=== PATIENT | male | born 1990 | race Two or more races ===

== ENCOUNTER 2019-02-02 08:49 | Emergency (ER) | payer OTHER ==
[~2019-02-02] VITALS: Ht 182.9 cm; Wt 74.8 kg
[2019-02-02] MEDS ORDERED: NKM (08:57)
[2019-02-02 09:00] VITALS: BP 115/59
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
[2019-02-02] MEDS ORDERED: Morphine Sulfate 2mg/ml Inj(IV/IM USE ONLY) IVP ONE (09:15)
--- NOTE | 2019-02-02 09:24 | NUR ---
ED Nurse Note: pt went down for CT in stable condition.
--- NOTE | 2019-02-02 09:28 | NUR ---
ED Nurse Note: pt came back from CT scan in stable condition.
[2019-02-02 09:40] LABS: BASOPHILS % (AUTO) 1.1 % (0.0-2.0); EOSINOPHILS % (AUTO) 1.4 % (0.0-3.0); HEMATOCRIT 42.2 % (42.0-52.0); HEMOGLOBIN 14.2 G/DL (14.2-18.0); LYMPHOCYTES % (AUTO) 29.3 % (20.0-45.0); MEAN CORPUSCULAR VOLUME 94 FL (80-99); MONOCYTES % (AUTO) 7.9 % (1.0-10.0); NEUTROPHILS % (AUTO) 60.3 % (45.0-75.0); PLATELET COUNT 275 K/UL (150-450); RED CELL DISTRIBUTION WIDTH 11.4 % (11.6-14.8); WHITE BLOOD COUNT 7.8 K/UL (4.8-10.8)
[2019-02-02 09:43] LABS: ANION GAP 5 mmol/L (5-15); BLOOD UREA NITROGEN 13 mg/dL (7-18); CARBON DIOXIDE 30 MMOL/L (21-32); CHLORIDE 106 MMOL/L (98-107); CREATININE 1.1 MG/DL (0.55-1.30); POTASSIUM 3.6 MMOL/L (3.5-5.1); SODIUM 141 MMOL/L (136-145)
[2019-02-02 09:48] LABS: ALANINE AMINOTRANSFERASE 144 U/L (12-78); ALKALINE PHOSPHATASE 76 U/L (46-116); ASPARTATE AMINO TRANSFERASE 66 U/L (15-37); BILIRUBIN,TOTAL 0.7 MG/DL (0.2-1.0)
--- NOTE | 2019-02-02 10:14 | Diagnostic Imaging Report ---
EXAM: CT Head Without Intravenous Contrast CLINICAL HISTORY: PAIN TECHNIQUE: Axial computed tomography images of the head/brain without intravenous contrast. CTDI is 70.38 mGy and DLP is 1379 mGy-cm. One or more of the following dose reduction techniques were used: automated exposure control, adjustment of the mA and/or kV according to patient size, use of iterative reconstruction technique. Coronal reformatted images were created and reviewed. COMPARISON: Maxillofacial CT dated 02/02/19 FINDINGS: Limitations: Exam mildly degraded by patient motion artifact. Brain: Unremarkable. No evidence of acute intracranial hemorrhage. No significant white matter disease. No edema. No mass effect or midline shift. Ventricles: Unremarkable. No ventriculomegaly. Bones/joints: Partial visualization of comminuted nasal bone fractures. Soft tissues: Unremarkable. Sinuses: Unremarkable as visualized. No acute sinusitis. Mastoid air cells: Unremarkable as visualized. No mastoid effusion. IMPRESSION: 1. Exam mildly degraded by patient motion artifact. 2. Partial visualization of comminuted nasal bone fractures. 3. No acute intracranial findings.
--- NOTE | 2019-02-02 10:16 | Diagnostic Imaging Report ---
EXAM: CT Maxillofacial Without Intravenous Contrast CLINICAL HISTORY: PAIN TECHNIQUE: Axial computed tomography images of the face without intravenous contrast. CTDI is 28.19 mGy and DLP is 620.21 mGy-cm. One or more of the following dose reduction techniques were used: automated exposure control, adjustment of the mA and/or kV according to patient size, use of iterative reconstruction technique. Coronal reformatted images were created and reviewed. COMPARISON: Noncontrast CT of the head obtained the same date FINDINGS: Bones/joints: Comminuted and mildly displaced nasal bone fractures and subtle fracture of the bony nasal septum. Soft tissues: Soft tissue swelling overlying the nose and left maxilla. Orbits: Unremarkable. Bony orbits appear intact. Bilateral globes and intraconal soft tissues appear unremarkable. Sinuses: Mild mucosal thickening in the ethmoid air cells and left maxillary sinus. No sinus air-fluid levels. IMPRESSION: 1. Comminuted and mildly displaced nasal bone fractures and subtle fracture of the bony nasal septum. 2. Mild mucosal thickening in the ethmoid air cells and left maxillary sinus. No sinus air-fluid levels. 3. Soft tissue swelling overlying the nose and left maxilla.
--- NOTE | 2019-02-02 10:19 | NUR ---
ED Nurse Note: ERMD at bedside speaking to pt about CT and blood results.
[2019-02-02] MEDS ORDERED: IBUPROFEN600 MG ORAL (10:28)
[2019-02-02] MEDS ORDERED: NORCO 5-325 TA1 EACH ORAL (10:28)
[2019-02-02] MEDS ORDERED: AMOXICILLIN500 MG ORAL (10:28)
[2019-02-02] MEDS ORDERED: HYDROcodone/Acetamin 5/325 tab ORAL ONE (10:30)
[2019-02-02] MEDS ORDERED: Bacitracin Opth Oint LEFT EYE ONE (10:30)
[2019-02-02] MEDS ORDERED: Tetanus/Diptheria/Pertussis IM ONE (10:30)
[2019-02-02 11:10] VITALS: BP 121/77
--- NOTE | 2019-02-02 11:11 | NUR ---
ER DISCHARGE NOTE: Patient is cleared to be discharged per ERMD after discussing CT results, pt is aox4, on room air, with stable vital signs. pt was given dc and prescription instructions with prints of CT image and results, pt was able to verbalize understanding, pt id band and iv site removed without complications. pt is able to ambulate with steady gait. pt took all belongings.
== END 2019-02-02 11:10 | disposition home or self-care (01) ==
LOC: EMR 09:12
DX: R51 Headache (principal); S01.112A Laceration without foreign body of left eyelid and periocular area, initial encounter; X58.XXXA Exposure to other specified factors, initial encounter; Z23 Encounter for immunization
CPT/HCPCS: 36415; 70450; 70486; 80053; 85025; 90471; 90715; 96374; 99284; J2270